=== PATIENT | female | born 1990 | race Caucasian/White ===

== ENCOUNTER → 2020-10-12 15:43 | Outpatient (BNVA) | payer OTHER, SELFPAY | PROVIDERS: Visit Provider Advanced Practice Midwife ==

== ENCOUNTER 2022-10-26 12:54 | Outpatient (REF) | payer OTHER, SELFPAY ==
[2022-10-30 20:34] LABS: HPV mRNA E6/E7 rflx Not Detected (Not Detected)
== END 2022-10-26 12:55 | disposition home or self-care (01) ==
LOC: HO.LNP 12:54
PROVIDERS: PCP Internal Medicine; Visit Provider Advanced Practice Midwife
DX: Z30.09 Encounter for other general counseling and advice on contraception (principal); N89.8 Other specified noninflammatory disorders of vagina; Z11.3 Encounter for screening for infections with a predominantly sexual mode of transmission; Z87.42 Personal history of other diseases of the female genital tract
CPT/HCPCS: 87624; 88142

== ENCOUNTER 2022-10-26 12:54 | Outpatient (AMB) | payer OTHER, SELFPAY ==
--- NOTE | 2022-10-26 12:55 | A.OFFVIS_ITS ---
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 She says she uses condoms. She on questioning was not clear about her menstrual history but it develops that she does keep track and she counts her cycles as 21 days +5 her 6 for her menses so there more like 26-27 days. She is not sure about when she ovulates, though she had some idea about it. She would like to get tested for everything she has had bacterial vaginosis in the past and has used the pills and the gel. She has 3 children all delivered vaginally and all induced for postdates at 9 days post SEKOU her last child was delivered at [facility] as the birthing center had closed deliver September 2019. Per the chart she has a history of abnormal Paps but she did not remember that. [facility] Surgical History Hx of appendectomy Social History Alcohol intake: never Patient Tobacco Use Status: Never used Tobacco Sexual orientation: Straight/Heterosexual Gender identity: Female Female Reproductive History Menstrual Age of Menarche: 10 Date of last menstrual period: 10/13/22 Total pregnancies: 4 Number of Living Children: 3 Ab spontaneous: 1 Date of last pap smear: 03/28/19 (WNL) History of abnormal pap smear: Yes (2008 [facility]GSIL , 2007 [facility] ) Physical Exam Vital Signs: Last Vital Signs BP 122/72 10/26/22 13:02 BMI result Body Mass Index 30.9 Const General: healthy appearing, comfortable, no acute distress, well developed and alert Nutritional Appearance: average body habitus Orientation/consciousness: patient oriented x3 Limitations: no limitations HEENT Head: Yes normocephalic Neck Neck: Yes normal visual inspection Chest Chest palpation & inspection: normal inspection of the chest Breast/axilla inspection: normal inspection of the breasts and normal inspection of the axillae Breast/axilla palpation: normal palpation of the breasts and normal palpation of the axillae Resp Effort & Inspection: normal respiratory effort GI Inspection: Yes normal to inspection, No Abdominal wall edema and No distended Palpation (GI): Soft to palpation and nontender Other: External exam within normal limits no lesions. Vagina pink slightly dark pink moist no abnormal discharge seen cervix appears within normal limits pink and smooth Pap smear and testing for GC chlamydia trich BV and Bisi done uterus is small anteverted mobile nontender adnexa nontender not enlarged good tone with Kegel General: Yes bladder normal to palpation External Female Exam: normal external appearance and normal appearance of the urethra Speculum Exam - Vagina: normal appearance of the vagina, normal palpation and normal vaginal discharge Speculum Exam - Cervix: normal appearance of the cervix, normal palpation and nontender Bimanual exam- vagina & uterus: normal bimanual exam, normal palpation, uterine size normal, bladder normal to palpation, consistency normal, normal palpation, uterine mobility normal, uterine shape normal, No Cervical tenderness present, non-tender and no cervical motion tenderness Bimanual Exam- Adnexa, other: normal adnexae, no masses, normal and No adnexal tenderness Neuro General: patient oriented x3 Assessment & Plan Assessment & Plan (1) control counseling: Code(s): Z30.09 - Encounter for other general counseling and advice on contraception (2) Vaginal irritation: Code(s): N89.8 - Other specified noninflammatory disorders of vagina (3) Screen for sexually transmitted diseases: Code(s): Z11.3 - Encounter for screening for infections with a predominantly sexual mode of transmission (4) Hx of abnormal cervical Pap smear: Code(s): Z87.42 - Personal history of other diseases of the female genital tract Plan -----Discussed in this visit the following: healthy balanced diet, regular and consistent exercise, getting recommended health screens, doing the best she can for her particular health concerns, kegel exercises, pap smear screening and followup recommendations, mammography screening and SBE, normal changes in cycles in her life stage--- . Testing was done as noted we will await the test results and if she still irritated she could call in tomorrow to find out the results she is on the portal. I did review that if it is BV treatment options include the vaginal gel or the pills. I offered her blood work for STIs as well and she thinks maybe she was she is here in the hospital she will go get those done. She is happy enough with condom use discussed whether not she has changed any detergents or body washes and she has recently changed her body wash she does wear cotton and these. She it looks fine per the exam so if there is nothing to treated taste maybe irritated from friction. Pap smear was done as well as she is due plus there is a history of abnormals. Reviewed her cycles and signs and symptoms of fertility and her use of condoms and that normally be menstrual cycles are counted from the 1st day of 1 menses to the 1st day of the next menses and that tells us the full length so in essence she probably has 26-27 day cycles. Orders: Orders Hepatitis B Surface Antigen Today N89.8 - Other specified noninflammatory disorders of vagina, Z11.3 - Encounter for screening for infections with a predominantly sexual mode of transmission, Z30.09 - Encounter for other general counseling and advice on contraception, Z87.42 - Personal history of other diseases of the female genital tract Hepatitis C Antibody Today N89.8 - Other specified noninflammatory disorders of vagina, Z11.3 - Encounter for screening for infections with a predominantly sexual mode of transmission, Z30.09 - Encounter for other general counseling and advice on contraception, Z87.42 - Personal history of other diseases of the female genital tract HIV Ab/Ag Today N89.8 - Other specified noninflammatory disorders of vagina, Z11.3 - Encounter for screening for infections with a predominantly sexual mode of transmission, Z30.09 - Encounter for other general counseling and advice on contraception, Z87.42 - Personal history of other diseases of the female genital tract Syphilis Screen Today N89.8 - Other specified noninflammatory disorders of vagina, Z11.3 - Encounter for screening for infections with a predominantly sexual mode of transmission, Z30.09 - Encounter for other general counseling and advice on contraception, Z87.42 - Personal history of other diseases of the female genital tract Bacterial Vaginosis Panel Today Z11.3 - Encounter for screening for infections with a predominantly sexual mode of transmission CT NG by PCR Today Z11.3 - Encounter for screening for infections with a predominantly sexual mode of transmission Pap Smear Today Z87.42 - Personal history of other diseases of the female genital tract Coding Level of Care Code New Pt Prev Care [id number] Diagnoses control counseling Z30.09 Vaginal irritation N89.8 Screen for sexually transmitted diseases Z11.3 Hx of abnormal cervical Pap smear Z87.42
[2022-10-26 13:02] VITALS: BP 122/72; BMI 30.9
== END 2022-10-26 13:47 | disposition home or self-care (01) ==
LOC: HO.HWSM 12:54
PROVIDERS: PCP Internal Medicine; Visit Provider Advanced Practice Midwife
DX: Z01.419 Encounter for gynecological examination (general) (routine) without abnormal findings (principal); Z30.09 Encounter for other general counseling and advice on contraception; N89.8 Other specified noninflammatory disorders of vagina; Z11.3 Encounter for screening for infections with a predominantly sexual mode of transmission; Z87.42 Personal history of other diseases of the female genital tract
CPT/HCPCS: 99385

== ENCOUNTER 2022-10-26 13:51 | Outpatient (REF) | payer OTHER, SELFPAY ==
[2022-10-27 04:17] LABS: Syphilis Screen Nonreactive (Nonreactive)
[2022-10-27 04:30] LABS: HBsAGNum1 0.43 S/CO (0.00-0.99); HIV AB/AG Nonreactive (Nonreactive); HIV Num 1 0.06 S/CO (0.00-0.99); Hepatitis B Surface Antigen Negative (Negative); ~HepC Num1 0.09 S/CO (0.00-0.79); ~Hepatitis C Antibody Nonreactive (Nonreactive)
[2022-10-27 12:26] LABS: CT PCR NOT DETECTED (Not Detect.); NG PCR NOT DETECTED (Not Detect.)
[2022-10-27 15:16] LABS: BV Int Neg Control Negative (Negative); BV Int Pos Control Positive (Positive)
== END 2022-10-26 13:52 | disposition home or self-care (01) ==
LOC: HO.LAB 13:51
PROVIDERS: Visit Provider Advanced Practice Midwife
DX: Z30.09 Encounter for other general counseling and advice on contraception (principal); Z11.3 Encounter for screening for infections with a predominantly sexual mode of transmission; N89.8 Other specified noninflammatory disorders of vagina; Z87.42 Personal history of other diseases of the female genital tract
CPT/HCPCS: 0353U; 86780; 86803; 87340; 87389; 87480; 87510; 87660

== ENCOUNTER → 2024-12-24 14:40 | Outpatient (BNVA) | payer SELFPAY | PROVIDERS: Visit Provider Physician Assistant | DX: Z02.1 Encounter for pre-employment examination (principal); R76.11 Nonspecific reaction to tuberculin skin test without active tuberculosis | CPT/HCPCS: 86706 ==